=== PATIENT | female | born 1990 | race Caucasian/White ===

== ENCOUNTER → 2019-02-02 18:00 | Observation (INO) ==
[2019-02-02 15:14] LABS: Amphetamine Screen,Urine Negative ng/mL (Cutoff=1000); Barbiturate Screen,Urine Negative ng/mL (Cutoff=200); Benzodiazepines Screen,Urine Negative ng/mL (Cutoff=200); Cannabinoid Screen,Urine Negative ng/mL (Cutoff = 50); Cocaine Screen,Urine Negative ng/mL (Cutoff= 300); Opiate Screen,Urine Negative ng/mL (Cutoff=300); Phencyclidine Screen,Urine Negative ng/mL (Cutoff=25)
== END | disposition home or self-care (01) ==
LOC: 1NENULAB
PROVIDERS: ADMIT Advanced Practice Midwife; ATTEND Advanced Practice Midwife

== ENCOUNTER 2019-02-03 12:17 | Inpatient (IN) ==
[2019-02-03] MEDS ORDERED: *HR* Nalbuphine 10 MG/ML AMPUL IVP PRN (13:36)
[2019-02-03] MEDS ORDERED: Naloxone 0.4 MG/ML INJ IVP PRN (13:36)
[2019-02-03] MEDS ORDERED: Famotidine 20 MG/2 ML VIAL IVP PRN (13:36)
[2019-02-03] MEDS ORDERED: Metoclopramide 10 MG/2 ML VIAL IVP PRN (13:36)
[2019-02-03] MEDS ORDERED: Ondansetron 4 MG/2 ML VIAL IVP PRN (13:36)
[2019-02-03] MEDS ORDERED: Ringers Solution, Lactated 1,000 ML IVC SCH (13:45)
[2019-02-03] MEDS ORDERED: Oxytocin 20 units/ LR 1000 mL 20 UNIT/1,000 ML BAG IVC SCH (13:45)
[2019-02-03 15:23] LABS: Amphetamine Screen,Urine Negative ng/mL (Cutoff=1000); Barbiturate Screen,Urine Negative ng/mL (Cutoff=200); Benzodiazepines Screen,Urine Negative ng/mL (Cutoff=200); Cannabinoid Screen,Urine Negative ng/mL (Cutoff = 50); Cocaine Screen,Urine Negative ng/mL (Cutoff= 300); Opiate Screen,Urine Negative ng/mL (Cutoff=300); Phencyclidine Screen,Urine Negative ng/mL (Cutoff=25)
[2019-02-03 15:44] LABS: Basophils % 0.3 %; Eosinophils # 0.1 K/mcL (0.0-0.6); Eosinophils % 0.4 %; Hematocrit 33.3 % (35.3-44.9); Hemoglobin 11.8 g/dL (11.5-15.4); Immature Granulocytes % 0.7 % (0-4); Lymphocytes # 1.7 K/mcL (0.6-4.6); Lymphocytes % 14.9 %; Mean Corpuscular HGB Conc 35.4 g/dL (31.6-35.5); Mean Corpuscular Hemoglobin 33.1 pg (28.0-33.3); Mean Corpuscular Volume 93.3 fL (83.0-100.0); Mean Platelet Volume 10.8 fL (9.4-12.4); Monocytes # 0.9 K/mcL (0.0-1.3); Monocytes % 7.5 %; Neutrophils # 8.8 K/mcL (1.6-8.9); Platelet Count 153 K/mcL (140-400); Red Blood Count 3.57 M/mcL (3.82-4.97); Red Cell Distribution Width 13.3 % (11.5-14.5); Segmented Neutrophils % 76.2 %; White Blood Count 11.6 K/mcL (4.3-11.1)
[2019-02-03] MEDS ORDERED: Ropivacaine/PF 0.2% 20 ML VIAL EP ONE (18:17)
[2019-02-03] MEDS ORDERED: *HR* FentaNYL (PF) 100 MCG/2 ML VIAL EP ONE (18:17)
[2019-02-03] MEDS ORDERED: Epidural Premix (fent/bupiv) 110 ML EP ONE (18:24)
[2019-02-03] MEDS ORDERED: Epidural Premix (fent/bupiv) 110 ML EP SCH (18:30)
[2019-02-03] MEDS ORDERED: *HR* Nalbuphine 10 MG/ML AMPUL IV PRN (20:21)
[2019-02-04] MEDS ORDERED: Benzocaine/Menthol 56 GM AEROSOL SPRAY TP PRN (01:41)
[2019-02-04] MEDS ORDERED: Oxytocin 20 units/ LR 1000 mL 20 UNIT/1,000 ML BAG IVC SCH (01:41)
[2019-02-04] MEDS ORDERED: Lanolin 7 G OINT...G. TP PRN (01:41)
[2019-02-04] MEDS ORDERED: Acetaminophen 325 MG TABLET PO PRN (01:41)
[2019-02-04] MEDS: Ibuprofen 600 MG TABLET PO PRN ×2 (01:49→13:40)
[2019-02-04] MEDS ORDERED: Ondansetron 4 MG/2 ML VIAL IVP ONE (05:18)
[2019-02-04] MEDS ORDERED: Simethicone 80 MG TAB.CHEW PO PRN (05:42)
[2019-02-04 07:38] VITALS: BP 117/71
[2019-02-04] MEDS ORDERED: Prenatal Vit/FA 1 EACH TABLET PO SCH (09:00)
== END 2019-02-04 15:05 | disposition home or self-care (01) | DRG 560 ==
LOC: 1NENULAB → OBSVTOIN 12:17 → 1NENULAB 15:00 → 1NENUOBS 02-04 01:32
PROVIDERS: ADMIT Registered Nurse; ATTEND Registered Nurse

== ENCOUNTER 2021-11-24 07:49 | Inpatient (IN) ==
[2021-11-24] MEDS ORDERED: Azithromycin 500 MG in 0.9 % Sodium Chloride 250 ML IVPB PRN (07:57)
[2021-11-24] MEDS ORDERED: Metoclopramide 10 MG/2 ML VIAL IVP PRN (07:57)
[2021-11-24] MEDS ORDERED: Lidocaine 1% 20 ML MDV INFILT PRN (07:57)
[2021-11-24] MEDS ORDERED: Famotidine 20 MG/2 ML VIAL IVP PRN (07:57)
[2021-11-24] MEDS ORDERED: Ringers Solution, Lactated 1,000 ML IVC SCH (08:00)
[2021-11-24] MEDS ORDERED: Penicillin G Potassium 5,000,000 UNIT in 0.9 % Sodium Chloride Mini Bag 100 ML IVPB ONE (08:18)
[2021-11-24 08:28] LABS: Basophils % 0.4 %; Eosinophils # 0.1 K/mcL (0.0-0.6); Eosinophils % 1.6 %; Hematocrit 35.7 % (35.3-44.9); Hemoglobin 12.1 g/dL (11.5-15.4); Immature Granulocytes % 0.5 % (0-4); Lymphocytes # 1.9 K/mcL (0.6-4.6); Lymphocytes % 25.7 %; Mean Corpuscular HGB Conc 33.9 g/dL (31.6-35.5); Mean Corpuscular Hemoglobin 31.2 pg (28.0-33.3); Mean Platelet Volume 10.6 fL (9.4-12.4); Monocytes # 0.5 K/mcL (0.0-1.3); Monocytes % 7.1 %; Neutrophils # 4.8 K/mcL (1.6-8.9); Platelet Count 153 K/mcL (140-400); Red Blood Count 3.88 M/mcL (3.82-4.97); Red Cell Distribution Width 13.3 % (11.5-14.5); Segmented Neutrophils % 64.7 %; White Blood Count 7.4 K/mcL (4.3-11.1)
[2021-11-24] MEDS ORDERED: miSOPROStoL 25 MCG TABLET PO PRN (08:53)
[2021-11-24] MEDS ORDERED: Ondansetron 4 MG/2 ML VIAL IVP PRN (10:53)
[2021-11-24] MEDS ORDERED: EPHEDrine sulfate 50 MG/10 ML VIAL IVP PRN (10:53)
[2021-11-24] MEDS ORDERED: Naloxone 0.4 MG/ML INJ IVP PRN (10:53)
[2021-11-24] MEDS ORDERED: Bupivacaine-MPF 0.25% 10 ML VIAL EP ONE (10:53)
[2021-11-24] MEDS ORDERED: *HR* FentaNYL (PF) 100 MCG/2 ML VIAL EP ONE (10:53)
[2021-11-24] MEDS ORDERED: Ropivacaine/PF 0.2% 20 ML VIAL EP ONE (10:53)
[2021-11-24] MEDS ORDERED: Epidural Premix (fent/bupiv) 110 ML EP ONE (10:59)
[2021-11-24] MEDS ORDERED: Epidural Premix (fent/bupiv) 110 ML EP SCH (11:00)
[2021-11-24] MEDS: Penicillin G Potassium 2,500,000 UNIT/105 ML MLS IVPB SCH ×2 (13:28→17:50)
[2021-11-24 16:32] LABS: Amphetamine Screen,Urine Negative ng/mL (Cutoff=1000); Barbiturate Screen,Urine Negative ng/mL (Cutoff=200); Benzodiazepines Screen,Urine Negative ng/mL (Cutoff=200); Cannabinoid Screen,Urine Negative ng/mL (Cutoff = 50); Cocaine Screen,Urine Negative ng/mL (Cutoff= 300); Opiate Screen,Urine Negative ng/mL (Cutoff=300); Phencyclidine Screen,Urine Negative ng/mL (Cutoff=25)
[2021-11-24] MEDS ORDERED: Oxytocin 30 UNIT/503 ML BAG IVC SCH ×2 (17:00→21:33)
[2021-11-24] MEDS ORDERED: Oxytocin 30 UNIT/503 ML BAG IVC ONE (17:02)
[2021-11-24] MEDS ORDERED: Methylergonovine 0.2 MG/ML AMPUL IM ONE (18:41)
[2021-11-24] MEDS ORDERED: Ondansetron ODT 4 MG TAB.RAPDIS SL PRN (21:33)
[2021-11-24] MEDS: Benzocaine/Menthol 56 GM AEROSOL SPRAY TP PRN (21:57)
[2021-11-24] MEDS: CeFAZolin 2,000 MG/120 ML BAG IVPB SCH (21:58)
[2021-11-24] MEDS: Lanolin 7 G OINT...G. TP PRN (21:58)
[2021-11-24] MEDS: Acetaminophen 325 MG TABLET PO SCH (21:58)
[2021-11-25] MEDS: Ibuprofen 600 MG TABLET PO SCH ×3 (03:22→16:52)
[2021-11-25] MEDS: CeFAZolin 2,000 MG/120 ML BAG IVPB SCH ×2 (03:22→12:09)
[2021-11-25] MEDS: Acetaminophen 325 MG TABLET PO SCH ×3 (03:22→16:52)
[2021-11-25 07:27] VITALS: O2SAT 96
[2021-11-25] MEDS: Benzocaine/Menthol 56 GM AEROSOL SPRAY TP PRN (07:58)
[2021-11-25] MEDS: Lanolin 7 G OINT...G. TP PRN (07:58)
[2021-11-25] MEDS ORDERED: Prenatal Vit/FA 1 EACH TABLET PO SCH (09:00)
[2021-11-25 17:25] VITALS: BP 100/68; PULSE 92; TEMP 97.9
== END 2021-11-25 18:42 | disposition home or self-care (01) | DRG 560 ==
LOC: 1NENULAB 07:49 → 1NENUOBS 21:33
PROVIDERS: ADMIT Student in an Organized Health Care Education/Training Program; ATTEND Student in an Organized Health Care Education/Training Program